=== PATIENT | female | born 1990 | race Two or more races ===

== ENCOUNTER 2017-04-07 11:44 | Day surgery (SDC) | payer OTHER ==
[~2017-04-07] VITALS: Ht 157.5 cm; Wt 76.3 kg
[2017-04-07 12:44] VITALS: Ht 157.5 cm; Wt 76.3 kg
[2017-04-07 13:36] VITALS: BP 104/67; PULSE 73; RESP 16
[2017-04-07] MEDS ORDERED: PROPOFOL 20 ML ONE (14:24)
[2017-04-07 15:12] VITALS: BP 116/56; PULSE 72; RESP 14
--- NOTE | 2017-04-07 15:12 | GILP ---
DATE OF PROCEDURE: 04/07/2017 PROCEDURE: Colonoscopy with biopsies. BRIEF HISTORY AND INDICATIONS: The patient is being evaluated for unexplained changes in bowel habi ts and abdominal pain. PREMEDICATION: Monitored anesthesia care by anesthesiologist. SURGEON: Honorio Chase MD INSTRUMENT USED: Olympus colonoscope. PREPARATION: Adequate. TECHNIQUE: After informed consent, with the patient/relatives understanding the procedure, its indic ations potential risks and complications, including but not limited to: allergic reaction, bleeding, perforation, infection, missed lesions and after all pertinent questions were answered to the patie nt's satisfaction, the patient/relatives signed the witnessed informed consent. Following this, pre medication was administered slowly IV push by under careful cardiovascular and respiratory monitorin g with pulse oximetry, automatic blood pressure and compliance monitor. Once the sedative effect was achiev ed, the patient was placed in the left lateral decubitus position, digital rectal examination was pe rformed. The colonoscope was then introduced and advanced under visual control throughout all segmen ts of the colon including: the rectum, sigmoid, descending colon, splenic flexure, transverse colon, hepatic flexure, ascending colon and finally reaching the cecum which was clearly identified by tra nsillumination, finger indentation and the ileocecal valve. Careful examination of the mucosa of the lower gastrointestinal tract both on insertion as well as withdrawal of the instrument disclosed th e following findings: Rectal Examination: No evidence of perirectal disease, no masses. Colonic Mucosa: The colonic mucosa is unremarkable throughout. The ileocecal valve was clearly ariel ntified and appears unremarkable. The terminal ileum was visualized and appears unremarkable as wel l. Random biopsies were obtained on withdrawal of the instrument on the right and left side of the colon to rule out microscopic lymphocytic or collagenous colitis. The instrument was then withdrawn, the patient tolerated the procedure well and was transferred out of the Endoscopy Suite awake and in good condition to continue recovery under observation. IMPRESSION: 1. Normal colonic mucosa to cecum, rule out microscopic lymphocytic or collagenous colitis. Biopsi es obtained. 2. Moderate-sized internal hemorrhoids. PLAN: The patient will be continued on present regimen. Pathology will be reviewed as soon as valorie labhenry. Further recommendations will depend on the patient's clinical course. Dictated By: HONORIO CHASE MS/RO Conf#: [id number] DID#: [id number] CC: HONORIO CHASE;*EndCC*
--- NOTE | 2017-04-07 15:13 | GILP ---
DATE OF PROCEDURE: 04/07/2017 PROCEDURE: Esophagogastroduodenoscopy with biopsies. BRIEF HISTORY AND INDICATIONS: The patient is being evaluated for dyspepsia and changes in bowel carvajal bits, abdominal pain. PREMEDICATION: Monitored anesthesia care by anesthesiologist. SURGEON: Jose Chase MD. INSTRUMENT USED: Olympus panendoscope. TECHNIQUE: After informed consent, with the patient/relatives understanding the procedure, its indic ations, potential risks and complications, including but not limited to: allergic reaction, bleeding , perforation or infection, and after all pertinent questions were answered to the patients satisfac tion, the patient/relatives signed witnessed informed consent. Following this, premedication was administered slowly IV push under careful cardiovascular and respi ratory monitoring with pulse oximetry, automatic blood pressure and cardiac monitor technician. Once the sedative effect was achieved the patient was place in the left lateral decubitus, the panen doscope was introduced and advanced under visual control. Careful examination of the upper gastrointestinal tract, both on insertion as well as withdrawal of the instrument disclosed the following findings: ESOPHAGUS: The mucosa of the entire esophagus appears within normal limits. There is no evidence of esophagitis, varices, neoplasm or stricture. No hiatal hernia identified. STOMACH: Upon entrance to the stomach, air was insufflated. There is significant erythema and gaby a of the mucosa in the body and antrum of stomach. Biopsies were obtained to rule out H. pylori inf ection. PYLORUS: The pylorus appears patent and within normal limits, with no evidence of gastric outlet ob struction. DUODENUM: The duodenal bulb is unremarkable. The second portion of duodenum appears somewhat atrop hic given the patient's diarrhea. Biopsies were obtained to rule out the possibility of celiac dise ase. The instrument was withdrawn. No additional abnormalities were noted. The patient tolerated the pr ocedure well and was transfer out of the endoscopy suite awake and in good condition to continue rec overy under observation IMPRESSION: 1. Moderate gastritis, rule out Helicobacter pylori infection, biopsies obtained. 2. Atrophic appearance second portion of the duodenum, rule out celiac disease, biopsies obtained. PLAN: The patient will be treated with PPIs. Further recommendation will depend on her clinical co urse as well as review of biopsies. Dictated By: JOSE CHASE MS/RO Conf#: [id number] DID#: [id number]
== END 2017-04-07 16:29 | disposition home or self-care (01) ==
LOC: GIL 11:44
PROVIDERS: ATTEND Internal Medicine Gastroenterology
DX: R19.4 Change in bowel habit (principal); K29.70 Gastritis, unspecified, without bleeding; K64.8 Other hemorrhoids
CPT/HCPCS: 43239; 45380; 84703; 88305; 88312; Z7610